=== PATIENT | female | born 1990 | race Two or more races ===

== ENCOUNTER 2023-10-15 13:01 | Outpatient (CLI) | payer OTHER | END 2023-10-15 13:13 | disposition home or self-care (01) | LOC: NST 13:01 | PROVIDERS: ATTEND Obstetrics & Gynecology Gynecology | DX: Z34.83 Encounter for supervision of other normal pregnancy, third trimester (principal) ==

== ENCOUNTER 2023-10-19 14:49 | Outpatient (CLI) | payer OTHER | END 2023-10-19 16:06 | disposition home or self-care (01) | LOC: NST 14:49 | PROVIDERS: ATTEND Obstetrics & Gynecology Gynecology | DX: Z34.83 Encounter for supervision of other normal pregnancy, third trimester (principal) ==

== ENCOUNTER 2023-10-22 11:42 | Outpatient (CLI) | payer OTHER | END 2023-10-22 12:56 | disposition home or self-care (01) | LOC: NST 11:42 | PROVIDERS: ATTEND Obstetrics & Gynecology Gynecology | DX: Z34.83 Encounter for supervision of other normal pregnancy, third trimester (principal) ==

== ENCOUNTER 2023-10-22 13:15 | Inpatient (IN) | payer OTHER ==
[~2023-10-22] VITALS: Ht 162.6 cm; Wt 2.7 kg
[2023-10-23] MEDS ORDERED: RINGERS SOLUTION,LACTATED 1,000 ML IV SCH (23:45)
[2023-10-23] MEDS ORDERED: AMPICILLIN SODIUM 2,000 MG VIAL IV ONE (23:45)
[2023-10-24] MEDS ORDERED: PRENATAL TABLE1 EAC1 PO
[2023-10-24 00:45] LABS: HEMOGLOBIN 12.3 g/dL (12.0-15.00); MEAN CELL VOLUME 82.8 fL (80.00-100.00); MEAN CORPUSCULAR HEMOGLOBIN 28.2 pg (27.00-32.0); MEAN CORPUSCULAR HGB CONC 34.1 g/dl (32.0-36.0); PLATELET COUNT 393 K/uL (150-450); RED BLOOD COUNT 4.34 M/uL (4.00-6.00); RED CELL DISTRIBUTION WIDTH 16.7 % (11.5-14.5)
[2023-10-24 00:48] LABS: INR < 0.93; PROTHROMBIN TIME 9.4 SECONDS (9.0-11.5)
[2023-10-24 00:53] LABS: ALBUMIN 2.5 gm/dL (3.4-5.0); BILIRUBIN TOTAL 0.43 mg/dL (0.3-1.2); CALCIUM 9.1 mg/dL (8.5-10.1); CREATININE SERUM 0.79 mg/dL (0.55-1.02); GFR 84.88; GLOBULINA 4.3 G/DL (2.4-3.5); POTASSIUM 4.11 mEq/L (3.5-5.1); TOTAL PROTEIN 6.8 gm/dL (6.4-8.2)
[2023-10-24] MEDS ORDERED: AMPICILLIN SODIUM 1,000 MG VIAL IV SCH (04:00)
[2023-10-24] MEDS ORDERED: MORPHINE SULFATE 4 MG/ML CARTRIDGE IV PRN (10:30)
[2023-10-24] MEDS ORDERED: OXYTOCIN 500 ML IV ONE (10:30)
[2023-10-24] MEDS ORDERED: DEXTROSE 5 % AND 0.9 % NACL 1,000 ML IV ONE (13:15)
[2023-10-24] MEDS ORDERED: CEFAZOLIN SODIUM 2,000 MG IV ONE (14:45)
[2023-10-24] MEDS ORDERED: CITRIC ACID/SODIUM CITRATE 30 ML BLIST.PACK PO ONE (14:45)
[2023-10-24] MEDS ORDERED: CEFAZOLIN SODIUM 2,000 MG in 0.9 % SODIUM CHLORIDE 100 ML IV ONE (15:00)
[2023-10-24] MEDS ORDERED: ERYTHROMYCIN BASE 1 GM TUBE OP ONE (15:45)
[2023-10-24] MEDS ORDERED: OXYTOCIN 10 UNITS/ML VIAL IV ONE (15:45)
[2023-10-24] MEDS ORDERED: OXYTOCIN 1,000 ML IV NR (16:00)
[2023-10-24] MEDS ORDERED: MEPERIDINE HCL/PF 50 MG/ML VIAL IM SCH (18:00)
[2023-10-24] MEDS ORDERED: PROMETHAZINE HCL 25 MG/ML AMPUL IV SCH (18:00)
[2023-10-25] MEDS ORDERED: ACETAMINOPHEN 500 MG GEL..CAP PO SCH (06:00)
[2023-10-25 06:30] LABS: HEMATOCRIT 34.7 % (36.0-45.00); HEMOGLOBIN 11.6 g/dL (12.0-15.00); MEAN CELL VOLUME 83.1 fL (80.00-100.00); MEAN CORPUSCULAR HEMOGLOBIN 27.7 pg (27.00-32.0); MEAN CORPUSCULAR HGB CONC 33.3 g/dl (32.0-36.0); PLATELET COUNT 329 K/uL (150-450); RED BLOOD COUNT 4.18 M/uL (4.00-6.00); RED CELL DISTRIBUTION WIDTH 16.6 % (11.5-14.5)
[2023-10-25] MEDS ORDERED: PNV,CALCIUM 72/IRON/FOLIC ACID 1 TAB TABLET PO SCH (09:00)
[2023-10-25] MEDS ORDERED: SIMETHICONE 125 MG CAPSULE PO SCH (09:00)
[2023-10-25] MEDS ORDERED: DOCUSATE SODIUM 100MG CAP PO SCH (09:00)
[2023-10-25] MEDS ORDERED: GABAPENTIN 300 MG CAPSULE PO SCH (09:00)
== END 2023-10-28 10:22 | disposition home or self-care (01) | DRG 788 ==
LOC: OB/GYN 10-23 23:57 → LDR 10-23 23:57 → OB/GYN 10-24 16:22
PROVIDERS: ADMIT Obstetrics & Gynecology Gynecology; ATTEND Obstetrics & Gynecology Gynecology
PROC: 4A1HXCZ Monitoring of Products of Conception, Cardiac Rate, External Approach (ICD-10-PCS; 2023-10-23)
PROC: 10D00Z1 Extraction of Products of Conception, Low, Open Approach (ICD-10-PCS; principal; 2023-10-24 14:00)
DX: O36.8130 Decreased fetal movements, third trimester, not applicable or unspecified (principal); O64.0XX0 Obstructed labor due to incomplete rotation of fetal head, not applicable or unspecified; O99.824 Streptococcus B carrier state complicating childbirth; Z3A.38 38 weeks gestation of pregnancy; Z37.0 Single live birth; Z20.822 Contact with and (suspected) exposure to COVID-19

== ENCOUNTER 2023-10-30 10:32 | Emergency (ER) | payer OTHER ==
[~2023-10-30] VITALS: Ht 162.6 cm; Wt 94.3 kg
[~2023-10-30 10:32] MED LIST: PRENATAL TABLE1 EAC1 PO
[2023-10-30] MEDS ORDERED: 0.9 % SODIUM CHLORIDE 1,000 ML IV ONE (11:00)
[2023-10-30] MEDS ORDERED: ONDANSETRON HCL 2 MG/ML VIAL IV ONE (11:00)
[2023-10-30] MEDS ORDERED: ONDANSETRON HCL 2 MG/ML VIAL ONE (11:19)
[2023-10-30 11:57] LABS: ERYTHROCYTE SEDIMENTATION RATE 91 mm/hr
[2023-10-30 11:59] LABS: HEMATOCRIT 33.9 % (36.0-45.00); MEAN CELL VOLUME 82.2 fL (80.00-100.00); MEAN CORPUSCULAR HEMOGLOBIN 26.6 pg (27.00-32.0); MEAN CORPUSCULAR HGB CONC 32.3 g/dl (32.0-36.0); PLATELET COUNT 586 K/uL (150-450); RED BLOOD COUNT 4.13 M/uL (4.00-6.00); RED CELL DISTRIBUTION WIDTH 16.8 % (11.5-14.5)
[2023-10-30 12:45] LABS: PROTHROMBIN TIME 10.5 SECONDS (9.0-11.5)
[2023-10-30 12:49] LABS: ALBUMIN 2.3 gm/dL (3.4-5.0); BILIRUBIN TOTAL 0.78 mg/dL (0.3-1.2); CALCIUM 9.3 mg/dL (8.5-10.1); CREATININE SERUM 0.71 mg/dL (0.55-1.02); GFR 95.4; GLOBULINA 5.5 G/DL (2.4-3.5); POTASSIUM 4.03 mEq/L (3.5-5.1); TOTAL PROTEIN 7.8 gm/dL (6.4-8.2)
[2023-10-30 12:52] LABS: D DIMER 4.62 MG/L; PARTIAL THROMBOPLASTIN TIME 30.4 SECONDS (22.0-34.0)
[2023-10-30 13:25] LABS: URINE APPEARANCE Clear; URINE BILIRRUBIN Negative (NEGATIVE); URINE BLOOD Negative; URINE COLOR Yellow; URINE GLUCOSE Negative (NEGATIVE); URINE LEUKOCYTE Negative; URINE NITRATE Negative; URINE PROTEIN Negative (NEGATIVE); URINE UROBILINOGEN 0.2 E.U./dl
[2023-10-30 13:28] LABS: URINE BACTERIA 64.2 uL (0.0-1933); URINE WBC 5.3 uL (0.0-23.2)
[2023-10-30 15:16] LABS: FIBRINOGEN > 860 mg/dL (187.0-446.0)
[2023-10-30 15:29] LABS: HEMATOCRIT 32.5 % (36.0-45.00); HEMOGLOBIN 10.8 g/dL (12.0-15.00); MEAN CELL VOLUME 83.5 fL (80.00-100.00); MEAN CORPUSCULAR HEMOGLOBIN 27.9 pg (27.00-32.0); MEAN CORPUSCULAR HGB CONC 33.4 g/dl (32.0-36.0); PLATELET COUNT 570 K/uL (150-450); RED BLOOD COUNT 3.89 M/uL (4.00-6.00); RED CELL DISTRIBUTION WIDTH 16.1 % (11.5-14.5)
== END 2023-10-30 16:26 | disposition home or self-care (01) ==
LOC: ER 10:33 → EDBD 11:01 → ER 11:01
PROVIDERS: General Practice
DX: R42 Dizziness and giddiness (principal); R53.1 Weakness; Z88.6 Allergy status to analgesic agent; Z91.013 Allergy to seafood; Z91.018 Allergy to other foods